=== PATIENT | female | born 1980 | race Caucasian/White ===

== ENCOUNTER 2017-05-08 18:45 | Inpatient (IN) | payer SELFPAY ==
[2017-05-08 18:49] VITALS: BP 119/70; PULSE 110; RESP 18; TEMP 98.7; O2SAT 98
[2017-05-08] MEDS ORDERED: PIPERACIL-TAZO 4.5 GM PREMIX 100 ML IV ONE ×2 (22:00)
--- NOTE | 2017-05-08 22:10 | PD ---
HPI Chief Complaint: Skin Problem Time Seen by Provider: 21:29 Travel History International Travel<30 days: No Contact w/Intl Traveler<30days: No Traveled to known affect area: No History of Present Illness HPI 37-year-old white female IV drug abuser presents to emergency department for evaluation of left arm cellulitis. She last used in her left arm approximately 2-3 days ago. She has had pain, swelling, redness in her left arm 2 days. Symptoms are moderate to severe. She was seen at [facility] this afternoon around 2:00. She was evaluated in the ER and was going to be admitted but left AMA. She states that she did not like the way she was being treated. She alleges that she had received Zosyn, vancomycin, Rocephin and Zithromax. She states that she had a urine test done there at that time of the visit which was positive for gonorrhea. She states that she had increased vaginal discharge or unusual and she has had a couple new partners. She does admit to feeling rundown, weak, subjective fever, cough, congestion and general malaise. She denies any chest pain, shortness of breath, palpitations, vomiting , abdominal pain, or urinary symptoms. PFSH Past Medical History Narrative Medical Hepatitis C, IVDA, gonorrhea Diminished Hearing: No Hepatitis: Yes Reproductive: Yes (PT HAS IUD) Integumentary: Yes (MRSA) Tetanus Vaccination: < 5 Years ?: Not : 6 Para: 2 Miscarriage: 2 : 1 Tubal Ligation: Yes Past Surgical History Narrative Surgical 4, tubal ligation Section: Yes (x4) Other Surgery: Yes (wound assertion surgery) Social History Alcohol Use: No Tobacco Use: Yes (1ppd) Substance Use: Yes (iv dilaudid use, methamphetamine) Allergies-Medications (Allergen,Severity, Reaction): Coded Allergies: No Known Allergies (Verified , 03/23/16) Reported Meds & Prescriptions Reported Meds & Active Scripts Active Review of Systems General / Constitutional: Positive: Fever Eyes: No: Pain, Visual changes HENT: No: Headaches, Neck Stiffness, Neck Pain Cardiovascular: No: Chest Pain or Discomfort, Palpitations, Tachycardia Respiratory: Positive: Cough, No: Shortness of Breath, Pleuritic Pain Gastrointestinal: Positive: Nausea, No: Abdominal Pain Genitourinary: Positive: Discharge, No: Frequency, Dysuria, Pelvic Pain Musculoskeletal: Positive: Myalgias, Limited ROM, Edema, Pain Skin: Positive Rash Neurologic: No: Weakness, Paresthesia Psychiatric: No: Depression Endocrine: No: Polydipsia Hematologic/Lymphatic: No: Easy Bruising Physical Exam Narrative GENERAL: Well-developed, well-nourished in no apparent distress. Nontoxic appearing. HEAD: Normocephalic, atraumatic. EYES: Pupils equal round and reactive. Extraocular motions intact. No scleral icterus. No injection or drainage. ENT: Nose clear. Throat without erythema, tonsillar hypertrophy or exudate. Uvula midline. Airway patent. NECK: Trachea midline. Supple, nontender, moves head freely. No central bony tenderness or spasm. CARDIOVASCULAR: Regular rate and rhythm without murmurs, gallops, or rubs. RESPIRATORY: Clear to auscultation. Breath sounds equal bilaterally. No wheezes , rales, or rhonchi. GASTROINTESTINAL: Abdomen soft, non-tender, nondistended. No hepato-splenomegaly , or palpable masses. No guarding. EXTREMITIES: No clubbing, cyanosis, or edema. No joint tenderness. Examination left upper extremity reveals a large amount of erythema, warmth, induration and tenderness to the upper arm down into the antecubital fossa and the proximal forearm. No pain in the shoulder, wrist, hand. She has intact sensation with good distal pulses. Patient has track maria on both upper and lower extremities. The right upper shoulder has no obvious skin infection. No obvious skin infection in the lower legs. BACK: Nontender without deformity. No flank tenderness. NEUROLOGICAL: Awake, alert and oriented x 3 .Cranial nerves grossly intact. Motor and sensory grossly within normal limits. Normal speech. Data Data Last Documented VS Vital Signs Date Time Temp Pulse Resp B/P (MAP) Pulse Ox O2 Delivery O2 Flow Rate FiO2 05/08/17 18:49 98.7 110 18 119/70 (86) 98 Orders Orders Complete Blood Count With Diff (05/08/17 21:53) Basic Metabolic Panel (Bmp) (05/08/17 21:53) Blood Culture (05/08/17 21:53) Iv Access Insert/Monitor (05/08/17 21:53) Lactic Acid (05/08/17 21:53) Piperacil-Tazo 4.5 Gm Premix (Zosyn 4.5 (05/08/17 22:00) MDM Medical Decision Making Medical Screen Exam Complete: Yes Emergency Medical Condition: Yes Medical Record Reviewed: Yes Differential Diagnosis MDM: High Differential diagnoses: Abscess, folliculitis, cellulitis, lymphangitis, abrasion, contact dermatitis Narrative Course This is a 37-year-old white female with IV drug abuse who presents with cellulitis and possible abscess of left upper arm. She was seen at [facility] and left AGAINST MEDICAL ADVICE. She had received vancomycin, Zosyn, Rocephin and Zithromax. She was treated for gonorrhea at that time as well. She tested positive urine. Patient was also given 2 mg of morphine IV. The patient stated that she did not like the way she was being treated and opted to leave. She alleges that she had an ultrasound of the left upper extremity which does not reveal any obvious drainable abscess. Patient here has IV access obtained. She is given a second dose of Zosyn 4.5 g IV. I spoken with Dr. Zhang and she has agreed to admit the patient. She is aware that still have a concern that the patient may have an underlying abscess which may need to be drained by Gen. surgery during her admission This is left arm cellulitis, IV drug abuse Diagnosis Primary Impression: Left arm cellulitis Additional Impression: IV drug abuse Admitting Information Admitting Physician Requests: Anam Lubin May 08, 2017 22:10
[2017-05-08] MEDS ORDERED: ONDANSETRON HCL 4 MG/2 ML VIAL IVP PRN ×2 (22:45)
[2017-05-08] MEDS ORDERED: Vancomycin Consult Pharmacy 1 EA OTHER SCH ×2 (22:45)
[2017-05-08] MEDS ORDERED: NALOXONE HCL 0.4 MG/ML AMP IV PUSH PRN ×2 (22:45)
[2017-05-08] MEDS ORDERED: SODIUM CHLORIDE 0.9% FLUSH 10 ML FLUSH IV FLUSH PRN ×2 (22:45)
[2017-05-08] MEDS ORDERED: ACETAMINOPHEN 325 MG TAB PO PRN ×2 (22:45)
[2017-05-08 22:54] LABS: AUTOMATED NEUTROPHIL # 13.5 TH/MM3 (1.8-7.7); BASOPHIL % 0.3 % (0.0-2.0); EOSINOPHIL % 0.2 % (0.0-4.0); HEMATOCRIT 38.3 % (35.0-46.0); HEMOGLOBIN 12.8 GM/DL (11.6-15.3); LYMPH % 7.7 % (9.0-44.0); LYMPHOCYTE # 1.2 TH/MM3 (1.0-4.8); MEAN CELL VOLUME 88.2 FL (80.0-100.0); MEAN CORPUSCULAR HEMOGLOBIN 29.5 PG (27.0-34.0); MEAN CORPUSCULAR HGB CONC 33.4 % (32.0-36.0); MEAN PLATELET VOLUME 8.6 FL (7.0-11.0); MONO % 5.9 % (0.0-8.0); MONOCYTE # 0.9 TH/MM3 (0-0.9); NEUT % 85.9 % (16.0-70.0); PLATELET COUNT 196 TH/MM3 (150-450); RED BLOOD COUNT 4.35 MIL/MM3 (4.00-5.30); RED CELL DISTRIBUTION WIDTH 12.7 % (11.6-17.2); WHITE BLOOD COUNT 15.8 TH/MM3 (4.0-11.0)
[2017-05-08] MEDS ORDERED: VANCOMYCIN 0 MG/NS 250 ML IV ONE ×4 (23:00)
[2017-05-08] MEDS: HEPARIN SODIUM - SQ 10,000 UNITS/ML VIAL SQ SCH ×2 (23:00)
[2017-05-08 23:08] LABS: BICARBONATE 26.7 MEQ/L (21.0-32.0); CALCIUM 8.4 MG/DL (8.5-10.1); CREATININE 0.63 MG/DL (0.50-1.00)
[2017-05-09] VITALS: BP 119/72; PULSE 107; RESP 17; TEMP 98.9; O2SAT 100
[2017-05-09 00:30] VITALS: BP 119/72; PULSE 107; RESP 17; TEMP 98.9; O2SAT 100
--- NOTE | 2017-05-09 01:13 | HHI.HP ---
HPI Service [facility] Hospitalists Primary Care Physician No Primary Care Physician Admission Diagnosis left arm cellulitis, IV drug abuse Diagnoses: Travel History International Travel<30 Days: No Contact w/Intl Traveler <30 Da: No Traveled to Known Affected Are: No History of Present Illness 37-year-old female with a past medical history significant for hepatitis C and IV drug use presents to the emergency department after being seen at outside hospital earlier today. The patient has a three-day history of left upper extremity pain and swelling with expanding erythema. The patient was started on vancomycin and Zosyn at [facility] however felt that she was not treated well there and decided to come to [place] ED instead. Ultrasound done in [facility] was negative for abscess collection. The patient endorses a 2 day history of fever/chills. Denies any other areas of erythema or other lesions. Last injection was one week ago. Review of Systems Subjective fever/chills Denies blurry vision, otorrhea, rhinorrhea Denies sore throat and cough No chest pain, palpitations, shortness of breath No abdominal pain Denies constipation/diarrhea/nausea/vomiting Denies muscle pain/weakness No rashes Past Family Social History Past Medical History Hepatitis C Past Surgical History 4 Bilateral tubal ligation Reported Medications None Allergies: Coded Allergies: No Known Allergies (Verified Allergy, Unknown, 05/08/17) Family History Mom with hepatitis C and cirrhosis. Social History Denies alcohol. 5-pack-year history of smoking. IV drug use, methamphetamine. Denies opiate use. Physical Exam Vital Signs Vital Signs Date Time Temp Pulse Resp B/P (MAP) Pulse Ox O2 Delivery O2 Flow Rate FiO2 05/09/17 00:30 98.9 107 17 119/72 (88) 100 05/08/17 18:49 98.7 110 18 119/70 (86) 98 Physical Exam GENERAL: White female lying in bed SKIN: Erythematous area on the left forearm and upper arm without fluctuance however indurated and edematous HEAD: Atraumatic. Normocephalic. No temporal or scalp tenderness. EYES: Pupils equal round and reactive. Extraocular motions intact. No scleral icterus. No injection or drainage. ENT: Nose without bleeding, purulent drainage or septal hematoma. Throat without erythema, tonsillar hypertrophy or exudate. Uvula midline. Airway patent. NECK: Trachea midline. No JVD or lymphadenopathy. Supple, nontender, no meningeal signs. CARDIOVASCULAR: Regular rate and rhythm without murmurs, gallops, or rubs. RESPIRATORY: Clear to auscultation. Breath sounds equal bilaterally. No wheezes , rales, or rhonchi. GASTROINTESTINAL: Abdomen soft, non-tender, nondistended. No hepato-splenomegaly , or palpable masses. No guarding. MUSCULOSKELETAL: Extremities without clubbing, cyanosis, or edema. No joint tenderness, effusion, or edema noted. NEUROLOGICAL: Awake and alert. Cranial nerves II through XII intact. Motor and sensory grossly within normal limits. Normal speech. Laboratory Laboratory Tests Test 05/08/17 22:20 White Blood Count 15.8 Red Blood Count 4.35 Hemoglobin 12.8 Hematocrit 38.3 Mean Corpuscular Volume 88.2 Mean Corpuscular Hemoglobin 29.5 Mean Corpuscular Hemoglobin Concent 33.4 Red Cell Distribution Width 12.7 Platelet Count 196 Mean Platelet Volume 8.6 Neutrophils (%) (Auto) 85.9 Lymphocytes (%) (Auto) 7.7 Monocytes (%) (Auto) 5.9 Eosinophils (%) (Auto) 0.2 Basophils (%) (Auto) 0.3 Neutrophils # (Auto) 13.5 Lymphocytes # (Auto) 1.2 Monocytes # (Auto) 0.9 Eosinophils # (Auto) 0.0 Basophils # (Auto) 0.0 CBC Comment DIFF FINAL Differential Comment Blood Urea Nitrogen 11 Creatinine 0.63 Random Glucose 107 Calcium Level 8.4 Sodium Level 137 Potassium Level 4.7 Chloride Level 104 Carbon Dioxide Level 26.7 Anion Gap 6 Estimat Glomerular Filtration Rate 108 Lactic Acid Level 1.7 Date/Time Source Procedure Growth Status 05/08/17 22:25 Blood Peripheral Aerobic Blood Culture Pending Received 05/08/17 22:25 Blood Peripheral Anaerobic Blood Culture Pending Received Result Diagram: 05/08/17221905/08/172219 Caprini VTE Risk Assessment Caprini VTE Risk Assessment: No/Low Risk (score <= 1) Caprini Risk Assessment Model Point Value = 1 Point Value = 2 Point Value = 3 Point Value = 5 Age 41-60 Minor surgery BMI > 25 kg/m2 Swollen legs Varicose veins or History of unexplained or recurrent spontaneous Oral contraceptives or hormone replacement Sepsis (< 1 month) Serious lung disease, including pneumonia (< 1 month) Abnormal pulmonary function Acute myocardial infarction Congestive heart failure (< 1 month) History of inflammatory bowel disease Medical patient at bed rest Age 61-74 Arthroscopic surgery Major open surgery (> 45 min) Laparoscopic surgery (> 45 min) Malignancy Confined to bed (> 72 hours) Immobilizing plaster cast Central venous access Age >= 75 History of VTE Family history of VTE Factor V Leiden Prothrombin [id number] Lupus anticoagulant Anticardiolipin antibodies Elevated serum homocysteine Heparin-induced thrombocytopenia Other congenital or acquired thrombophilia Stroke (< 1 month) Elective arthroplasty Hip, pelvis, or leg fracture Acute spinal cord injury (< 1 month) Prophylaxis Regimen Total Risk Factor Score Risk Level Prophylaxis Regimen 0-1 Low Early ambulation 2 Moderate Order ONE of the following: *Sequential Compression Device (SCD) *Heparin 5000 units SQ BID 3-4 Higher Order ONE of the following medications: *Heparin 5000 units SQ TID *Enoxaparin/Lovenox 40 mg SQ daily (WT < 150 kg, CrCl > 30 mL/min) *Enoxaparin/Lovenox 30 mg SQ daily (WT < 150 kg, CrCl > 10-29 mL/min) *Enoxaparin/Lovenox 30 mg SQ BID (WT < 150 kg, CrCl > 30 mL/min) AND/OR *Sequential Compression Device (SCD) 5 or more Highest Order ONE of the following medications: *Heparin 5000 units SQ TID (Preferred with Epidurals) *Enoxaparin/Lovenox 40 mg SQ daily (WT < 150 kg, CrCl > 30 mL/min) *Enoxaparin/Lovenox 30 mg SQ daily (WT < 150 kg, CrCl > 10-29 mL/min) *Enoxaparin/Lovenox 30 mg SQ BID (WT < 150 kg, CrCl > 30 mL/min) AND *Sequential Compression Device (SCD) Assessment and Plan Assessment and Plan 37-year-old female with past medical history significant for hepatitis C and IV drug abuse presents to the emergency department with cellulitis 1. Cellulitis Ultrasound done at [facility] was negative for abscess or fluid collection Vancomycin and Zosyn Blood cultures pending Concern for early abscess formation, monitor and repeat ultrasound if clinically indicated Monitor for signs of sepsis 2. Hepatitis C LFTs pending FEN: Regular diet Electrolytes: Replete when necessary SCDs Physician Certification 2 Midnight Certification Type: Admission for Inpatient Services Order for Inpatient Services The services are ordered in accordance with Medicare regulations or non- Medicare payer requirements, as applicable. In the case of services not specified as inpatient-only, they are appropriately provided as inpatient services in accordance with the 2-midnight benchmark. Estimated LOS (days): 2 2 days is the estimated time the patient will need to remain in the hospital, assuming treatment plan goals are met and no additional complications. Post-Hospital Plan: Not yet determined Alanis Zhang MD May 09, 2017 01:13
[2017-05-09] MEDS: ACETAMINOPHEN/HYDROcodone 325 MG/5 MG TAB PO PRN ×8 (01:19→21:44)
[2017-05-09] MEDS: PIPERACIL-TAZO 3.375 GM PREMIX 50 ML IV SCH ×8 (05:59→21:43)
[2017-05-09] MEDS: HEPARIN SODIUM - SQ 10,000 UNITS/ML VIAL SQ SCH ×4 (05:59→12:55)
[2017-05-09 08:00] VITALS: BP 115/57; PULSE 88; RESP 20; TEMP 97.7; O2SAT 99
[2017-05-09] MEDS: SODIUM CHLORIDE 0.9% FLUSH 10 ML FLUSH IV FLUSH SCH ×4 (08:11→21:43)
[2017-05-09] MEDS: VANCOMYCIN INJ 1,250 MG in SODIUM CHLOR 0.9% 250 ML INJ 250 ML IV SCH ×8 (11:13→21:58)
[2017-05-09 12:00] VITALS: BP 121/58; PULSE 92; RESP 20; TEMP 96.9; O2SAT 100
--- NOTE | 2017-05-09 13:37 | HHI.PR ---
Subjective Remarks Patient reports she is feeling okay. Still complaining of pain involving the left upper arm. No fevers or chills. She inquired about how long she will need to be in the hospital. Objective Vitals Vital Signs Date Time Temp Pulse Resp B/P (MAP) Pulse Ox O2 Delivery O2 Flow Rate FiO2 05/09/17 12:00 96.9 92 20 121/58 (79) 100 05/09/17 08:00 97.7 88 20 115/57 (76) 99 05/09/17 00:30 98.9 107 17 119/72 (88) 100 05/08/17 18:49 98.7 110 18 119/70 (86) 98 I/O 05/08/17 05/08/17 05/08/17 05/09/17 05/09/17 05/09/17 07:00 15:00 23:00 07:00 15:00 23:00 Intake Total 540 ml 120 ml Balance 540 ml 120 ml Intake Oral 240 ml 120 ml IV Total 300 ml # Voids 2 Result Diagram: 05/08/17221905/08/172219 Objective Remarks GENERAL: This is a well-nourished, well-developed patient, in no apparent distress. SKIN: Left mid upper forearm above the antecubital area, there is an area of firmness with minimal cellulitis. I could not appreciate any true fluctuance. CARDIOVASCULAR: Normal rate and regular rhythm without murmurs, gallops, or rubs. RESPIRATORY: Good respiratory efforts. Breath sounds equal and clear to auscultation bilaterally. GASTROINTESTINAL: Abdomen soft, non-tender, non-distended. Normal active bowel sounds MUSCULOSKELETAL: Extremities without cyanosis, or edema. NEURO: Alert & Oriented x4 to person, place, time, situation. Moves all ext x4 PSYCH: Appropriate mood and affect. A/P Assessment and Plan 37-year-old female with past medical history significant for hepatitis C and IV drug abuse presents to the emergency department with cellulitis involving the upper left forearm. 1. Cellulitis in an IV drug user. Ultrasound done at [facility] was negative for abscess or fluid collection Vancomycin and Zosyn Blood cultures pending Patient does have an area of firmness. It is unclear if this would develop into an abscess. Continue to monitor today and reassessed tomorrow. Can consider ultrasound to rule out abscess development. If no signs of abscess and her blood cultures remain negative. Outpatient antibiotics would be reasonable. Monitor for signs of sepsis 2. Hepatitis C Advise outpatient follow-up to be considered for treatment. 3. IV drug use. Patient reports she normally does not use drugs but have been experimenting lately for recovery additional purposes. She indicates that she will not use anymore. - She was strongly counseled on the possible detrimental effects on her health. She appeared to understand. Zeyad Lewis MD May 09, 2017 13:37
[2017-05-09 16:00] VITALS: BP 118/72; PULSE 107; RESP 19; TEMP 99; O2SAT 98
[2017-05-09 20:00] VITALS: BP 117/72; PULSE 97; RESP 18; TEMP 97.1; O2SAT 98
[2017-05-10] MEDS: PIPERACIL-TAZO 3.375 GM PREMIX 50 ML IV SCH ×4 (05:05→09:44)
[2017-05-10] MEDS: ACETAMINOPHEN/HYDROcodone 325 MG/5 MG TAB PO PRN ×4 (05:55→09:43)
[2017-05-10 08:00] VITALS: BP 104/52; PULSE 91; RESP 17; TEMP 98.4; O2SAT 97
[2017-05-10] MEDS: SODIUM CHLORIDE 0.9% FLUSH 10 ML FLUSH IV FLUSH SCH ×2 (08:47)
[2017-05-10] MEDS ORDERED: PHARMACY ORDERED LAB ONE ×2 (10:45)
--- NOTE | 2017-05-10 13:00 | PD.AMA ---
Against Medical Advice Note Diagnosis: (1) Left arm cellulitis (2) IV drug abuse Discharge Disposition: Against Medical Advice Recommended Treatment Course COME BACK TO HOSPITAL FOR TREATMENT STOP USING IV DRUGS AMA Statement Patient Oly Pryor has decided to leave the hospital against medical advice. This patient has the capacity to refuse care and understands the risks of leaving, including permanent disability and/or , and has had an opportunity to ask questions about her condition. The patient has been informed that she may return for care at any time, and follow up has been arranged/ advised. Matias Dubon DO May 10, 2017 13:00
== END 2017-05-10 11:45 | disposition left against medical advice (07) | DRG 603 ==
LOC: NEPD 18:45 → NEDA 22:12 → N07B 05-09 00:24
PROVIDERS: ADMIT Hospitalist; ATTEND Hospitalist
DX: L03.114 Cellulitis of left upper limb (principal); A54.02 Gonococcal vulvovaginitis, unspecified; F11.10 Opioid abuse, uncomplicated; F15.10 Other stimulant abuse, uncomplicated; B19.20 Unspecified viral hepatitis C without hepatic coma; Z72.0 Tobacco use; Z86.14 Personal history of Methicillin resistant Staphylococcus aureus infection
CPT/HCPCS: 80048; 83605; 85025; 87040; J2543; J3370; J7050

== ENCOUNTER 2017-10-14 14:44 | Emergency (ER) | payer SELFPAY | END 2017-10-14 15:09 | disposition left against medical advice (07) | LOC: NED 14:44 | DX: R55 Syncope and collapse (principal) | CPT/HCPCS: 99281 ==